=== PATIENT | female | born 2000 | race Caucasian/White ===

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

== ENCOUNTER → 2023-11-06 | Outpatient (REF) | payer BC ==
[2023-11-06 15:22] LABS: CHLAMYDIA DNA AMPLIFICATION NEGATIVE (NEGATIVE); GC DNA AMPLIFICATION NEGATIVE (NEGATIVE)
== END ==
LOC: M LAB REF 12:18
PROVIDERS: ATTEND Physician Assistant
DX: R30.0 Dysuria (principal)